=== PATIENT | female | born 1990 | race Caucasian/White ===

== ENCOUNTER 2021-01-01 10:27 | Emergency (ER) | payer OTHER, SELFPAY ==
--- NOTE | ~2021-01-01 | US_ITS ---
EXAMINATION: US RETROPERITONEAL COMPLETE (RENAL) CLINICAL INFORMATION: Right flank pain with question of stone disease. COMPARISON: Renal ultrasound 05/02/[address] abdomen/pelvis 10/06/2018 TECHNIQUE: Real-time imaging of the kidneys and bladder. FINDINGS: RIGHT KIDNEY: 12.3 x 4.7 x 6.0 cm (SAG x AP x TRV). The kidney is normal in size, contour, and echogenicity. Renal cortical thickness is normal. A lower pole 5 x 3 mm calculus is present slightly larger than in 2019. No other calculi or focal parenchymal lesions. No hydronephrosis. LEFT KIDNEY: 13.2 x 5.5 x 5.2 cm (SAG x AP x TRV). The kidney is normal in size, contour, and echogenicity. Renal cortical thickness is normal. Again seen are multiple nonobstructing calculi, the largest of which is in the midpole measuring 7 mm in size. No focal parenchymal lesions. No hydronephrosis. BLADDER: Well distended and normal. Bilateral ureteral jets are demonstrated. Prevoid bladder volume is 217 mL. Postvoid bladder volume is 3 mL. US/US retroperitoneal comp IMPRESSION: 1. Bilateral nonobstructing renal calculi. 2. The cause for the patient's right flank pain is not related to obstructive uropathy.
--- NOTE | 2021-01-01 10:35 | ED_ITS ---
HPI - Abdominal Pain General Chief Complaint: Abdominal Pain Stated Complaint: kidney pain Time Seen by Provider: 01/01/21 10:34 Source: patient Mode of arrival: ambulatory Limitations: no limitations History of Present Illness HPI narrative: 30 yo female with hx of kidney stones prior stent in the past, at this time she is 10 weeks (no OB complaints) here with R flank pain for 5 days worsening in nature c/o nausea as well, thinks it is a kidney stone MD elicited complaint: flank pain Pertinent past history: kidney stones Onset (ago): day(s) (5) Pain Consistency: colicky Location: R flank Severity: severe Quality: stabbing Radiation: R flank Migration to: no migration Exacerbating factors: nothing Relieving factors: nothing Associated symptoms: nausea Treatments prior to arrival: other (took tylenol at 4am) Related Data Previous Rx's Medication Instructions Recorded cephalexin 500 mg PO TID 10 Days #30 cap 01/01/21 ondansetron 4 mg PO Q8H PRN #20 tab 01/01/21 Allergies Allergy/AdvReac Type Severity Reaction Status Date / Time bee pollen [BEE STINGS] Allergy Unknown UNKNOWN Unverified 04/03/20 18:42 Review of Systems Review of Systems Constitutional : No Weight loss, No Fever, No Chills ENT/Mouth : No sore throat, No Rhinorrhea Eyes: No Swelling, No Redness Cardiovascular : No Chest Pain, No SOB, NoEdema Respiratory : No Cough, No Sputum, No Wheezing Gastrointestinal : Positive Nausea, no Vomiting, no Diarrhea, no abdominal Pain, No Hematochezia, No Melena, pos flank pain Genitourinary : No Dysuria, No Urinary Frequency, No Hematuria, No Urgency, no irregular bleeding Musculoskeletal : No joint pain, No Myalgias, No Joint Swelling Skin : No Skin Lesions, No rash Neuro : No Weakness, No Numbness, No Dizziness, No Headache Psych : No Anxiety/Panic, No Depression Heme/Lymph: No Bruising, No Lymphadenopathy Endocrine : No Polyuria, No Polydipsia All other systems reviewed and are negative. Physical Exam Vital Signs: Vital Signs: Last Vital Signs Temp 99.2 F 01/01/21 10:37 Pulse 91 01/01/21 10:37 Resp 18 01/01/21 10:37 BP 116/69 01/01/21 10:37 Pulse Ox 99 01/01/21 10:37 Body Mass Index 26.6 Appearance: Alert. Oriented X3. No acute distress. in pain Eyes: Pupils equal, round and reactive to light. ENT: Pharynx normal. Neck: Normal inspection. Neck supple. CVS: Normal heart rate and rhythm. Pulses normal. Respiratory: No respiratory distress. Breath sounds normal. Abdomen: Soft and nontender. Back: moderate R CVA ttp Skin: Skin warm and dry. Normal skin color. Normal skin turgor. Extremities: No lower extremity edema. No calf ttp Neuro: Oriented X 3. No motor deficit. No sensory deficit. Course Course Course Narrative: no leukocytosis, no vomiting, tolerating PO, no obstructing stone, will treat as possible pyelo though not clinically toxic, strict precautions to return MDM - Abdominal Pain MDM Narrative Medical decision making narrative: 30 yo female with hx of kidney stones prior stent in the past, at this time she is 10 weeks (no OB complaints) here with R flank pain for 5 days worsening in nature c/o nausea as well, thinks it is a kidney stone at this time will need labs, IVF, IV anti emetics, tylenol for pain, US to evaluate for stone, she has no OB complaints at this time Lab Data Result diagrams: 01/01/21 10:54 01/01/21 10:54 Labs: Lab Results 01/01/21 01/01/21 01/01/21 Range/Units 10:54 10:54 10:54 WBC 9.4 (4.8-10.8) X10*3/uL RBC 4.50 (4.20-5.50) X10*6/uL Hgb 13.1 (12.0-16.0) g/dl Hct 38.2 (37-47) % MCV 84.9 (80-98) fL MCH 29.1 (27.0-33.0) pg MCHC 34.3 (31.0-35.0) g/dl RDW 12.9 (11.0-16.0) % Plt Count 254 (160-400) X10*3/uL MPV 9.0 L (9.4-12.3) fL Immature Gran % (Auto) 0.3 (0.0-0.4) % Neut % (Auto) 73.9 H (45-73) % Lymph % (Auto) 15.5 L (20-40) % [place] % (Auto) 8.8 (2-11) % Eos % (Auto) 1.2 (0-4) % Baso % (Auto) 0.3 (0-2) % Lymph # (Auto) 1.5 (1.2-4.9) X10*3/uL [place] # (Auto) 0.8 (0.1-1.2) X10*3/uL Eos # (Auto) 0.1 (0.0-0.4) X10*3/uL Baso # (Auto) 0.0 (0.0-0.2) X10*3/uL Abs Immat Gran (auto) 0.03 (0.00-0.03) X10*3/uL Absolute Neuts (auto) 6.9 (2.0-8.3) X10*3/uL Absolute Nucleated RBC 0.000 (0.0-0.012) X10*3/uL Nucleated RBC % (auto) 0.0 (0.0-0.2) /100WBC Sodium 138 (135-145) mmol/L Potassium 3.6 (3.3-5.1) mmol/L Chloride 107 (96-108) mmol/L Carbon Dioxide 22 (22-29) mmol/L Anion Gap 13 (12-20) BUN 10 (9-16) mg/dL Creatinine 0.66 (0.5-1.4) mg/dL Estim Creat Clear Calc 128.9 Estimated GFR > 60 Random Glucose 75 (60-115) mg/dL Calcium 9.1 (8.4-10.2) mg/dL Magnesium 1.9 (1.6-2.6) mg/dL Total Bilirubin 0.4 (0.0-1.0) mg/dL Direct Bilirubin < 0.2 (0.0-0.5) mg/dL AST 19 (5-31) U/L ALT 12 (0-31) U/L Alkaline Phosphatase 47 (39-117) U/L Total Protein 6.7 (6.5-8.0) g/dL Albumin 3.9 (3.5-5.0) g/dL Lipase 38 (8-78) U/L Urine Color YELLOW Urine Appearance HAZY Urine pH 6.5 (5.0-8.0) Ur Specific [place] 1.025 (1.005-1.025) Urine Protein NEG (NEG-TRACE) MG/DL Urine Glucose (UA) NEG (NEG) MG/DL Urine Ketones NEG (NEG) MG/DL Urine Blood NEG (NEG) Urine Nitrite NEG (NEG) Ur Leukocyte Esterase 1+ H (NEG) Urine RBC 0 (0) /HPF Urine WBC 15-29 H (0-4) /HPF Ur Squamous Epith Cells 2+ /LPF Urine Bacteria 1+ /LPF Urine Mucus 3+ /LPF Discharge Plan Discharge Clinical Impression: Calculus of kidney, UTI (urinary tract infection) Patient Disposition: Home, Self-Care Instructions: Kidney Infection (ED) Additional Instructions: return to ED for any worsening symptoms or concerns IF YOU HAVE WORSE PAIN, FEVERS, UNABLE TO TAKE MEDICATIONS PLEASE RETURN THIS IS SERIOUS AND COULD AFFECT YOU AND THE BABY Prescriptions: New cephalexin 500 mg capsule 500 mg PO TID 10 Days Qty: 30 RF: 0 ondansetron 4 mg tablet,disintegrating 4 mg PO Q8H PRN (Reason: nausea and vomiting) Qty: 20 RF: 0 Stand Alone Forms: Work/School Release [facility] Past Medical History Attestation statement: The following information was validated with the patient. Medical History Kidney stone Surgical History S/P ureteral stent placement Social History Social History (Updated 01/01/21 @ 10:57 by Shoshana Schneider DO) Alcohol intake: never Patient Tobacco Use Status: Never used Tobacco Use of substances other than those prescribed or required for medical reasons: No Advance Directives: Yes Advance Directives Information Provided: Yes Advance Directives on File: No Patient : Yes
[2021-01-01 10:37] VITALS: BP 116/69; PULSE 91; RESP 18; TEMP 37.3; O2SAT 99; BMI 26.6
[2021-01-01 10:58] LABS: MANUAL DIFF FLAG NO
[2021-01-01 10:59] LABS: Glucose Urine UA NEG (NEG); Leukocyte Esterase Urine 1+ (NEG); Nitrite Urine NEG (NEG); PH 6.5 (5.0-8.0); Specific Gravity - Urine 1.025 (1.005-1.025); UACC Culture Trigger YES; Urine Blood NEG (NEG); Urine Ketones NEG (NEG); Urine Protein NEG (NEG-TRACE)
[2021-01-01] MEDS: Metoclopramide HCl 10 MG/2 ML VIAL 5 MG IVPUSH (10:59)
[2021-01-01] MEDS: 0.9 % Sodium Chloride 1,000 ML 999 ML IVCONT (10:59)
[2021-01-01] MEDS: Acetaminophen 325 MG TABLET 650 MG PO (10:59)
[2021-01-01] MEDS: diphenhydrAMINE HCL 50 MG/ML VIAL 25 MG IVPUSH (10:59)
[2021-01-01 11:00] LABS: Appearance Urine HAZY; Basophils Percent Auto 0.3 % (0-2); Color Urine YELLOW; Eosinophils Absolute Auto 0.1 X10*3/uL (0.0-0.4); Eosinophils Percent Auto 1.2 % (0-4); Hematocrit 38.2 % (37-47); Hemoglobin 13.1 g/dl (12.0-16.0); Imm Gran Abs Auto 0.03 X10*3/uL (0.00-0.03); Imm Gran Pct Auto 0.3 % (0.0-0.4); Lymphocytes Absolute Auto 1.5 X10*3/uL (1.2-4.9); Lymphocytes Percent Auto 15.5 % (20-40); Mean Corpuscular HGB Conc 34.3 g/dl (31.0-35.0); Mean Corpuscular Hemoglobin 29.1 pg (27.0-33.0); Mean Corpuscular Volume 84.9 fL (80-98); Monocytes Absolute Auto 0.8 X10*3/uL (0.1-1.2); Monocytes Percent Auto 8.8 % (2-11); Neutrophils Absolute Auto 6.9 X10*3/uL (2.0-8.3); Neutrophils Percent Auto 73.9 % (45-73); Platelet Count 254 X10*3/uL (160-400); Red Cell Distribution Width 12.9 % (11.0-16.0); White Blood Count 9.4 X10*3/uL (4.8-10.8)
[2021-01-01 11:08] LABS: Bacteria Urine 1+ /LPF; Mucus Urine 3+ /LPF; RBC Urine 0 /HPF (0); Squamous Epithelial Cell Urine 2+ /LPF
[2021-01-01 11:21] LABS: Alanine Aminotransferase 12 U/L (0-31); Albumin Level 3.9 g/dL (3.5-5.0); Alkaline Phosphatase 47 U/L (39-117); Anion Gap 13 (12-20); Aspartate Amino Transferase 19 U/L (5-31); Bilirubin Direct < 0.2 mg/dL (0.0-0.5); Bilirubin Total 0.4 mg/dL (0.0-1.0); Blood Urea Nitrogen 10 mg/dL (9-16); Calcium 9.1 mg/dL (8.4-10.2); Carbon Dioxide 22 mmol/L (22-29); Chloride 107 mmol/L (96-108); Creatinine Clr Calc Pharmacy 128.9; Estimated Glomerular Filt Rate > 60; Glucose Random 75 mg/dL (60-115); Lipase 38 U/L (8-78); Magnesium 1.9 mg/dL (1.6-2.6); Potassium 3.6 mmol/L (3.3-5.1); Sodium 138 mmol/L (135-145); Total Protein 6.7 g/dL (6.5-8.0)
[2021-01-01] MEDS: cefTRIAXone sodium 1 GM in 0.9 % Sodium Chloride 50 ML IV (13:30)
[2021-01-01 13:47] LABS: Lactic Acid 1.3 mmol/L (0.5-2.0)
== END 2021-01-01 14:13 | disposition home or self-care (01) ==
PROVIDERS: Emergency Provider Emergency Medicine; PCP Nurse Practitioner Family
DX: O23.41 Unspecified infection of urinary tract in pregnancy, first trimester (principal); O99.891 Other specified diseases and conditions complicating pregnancy; N20.0 Calculus of kidney; Z3A.10 10 weeks gestation of pregnancy; Z87.442 Personal history of urinary calculi
CPT/HCPCS: 36415; 76770; 80048; 80076; 81001; 81003; 83605; 83690; 83735; 85025; 87040; 87086; 96361; 96365; 96375; 99284; J0696; J1200; J2765

== ENCOUNTER 2022-04-29 12:16 | Outpatient (REF) | payer BC, SELFPAY ==
[2022-04-29 15:02] LABS: MANUAL DIFF FLAG NO
[2022-04-29 15:04] LABS: Appearance Urine Clear; Color Urine Yellow; Glucose Urine UA Negative (Negative); Leukocyte Esterase Urine Moderate (2+) (Negative); Nitrite Urine Negative (Negative); PH 8.5 (5.0-9.0); Specific Gravity - Urine 1.015 (1.005-1.025); UMIC TRIGGER UACC YES; Urine Blood Trace (Negative); Urine Ketones Negative (Negative); Urine Protein Negative (Neg-Trace)
[2022-04-29 15:10] LABS: Basophils Absolute Auto 0.1 X10*3/uL (0.0-0.2); Eosinophils Absolute Auto 0.1 X10*3/uL (0.0-0.4); Eosinophils Percent Auto 2.2 % (0-4); Hematocrit 38.5 % (37.0-47.0); Hemoglobin 13.1 g/dl (12.0-16.0); Imm Gran Abs Auto 0.01 X10*3/uL (0.00-0.03); Imm Gran Pct Auto 0.2 % (0.0-0.4); Lymphocytes Absolute Auto 1.5 X10*3/uL (1.2-4.9); Lymphocytes Percent Auto 25.4 % (20-40); Mean Corpuscular Hemoglobin 28.7 pg (27.0-33.0); Mean Corpuscular Volume 84.2 fL (80.0-98.0); Monocytes Absolute Auto 0.7 X10*3/uL (0.1-1.2); Monocytes Percent Auto 11.4 % (2-11); Neutrophils Absolute Auto 3.6 x10*3/uL (2.0-8.3); Neutrophils Percent Auto 59.8 % (45-73); Platelet Count 280 X10*3/uL (160-400); Red Blood Count 4.57 X10*6/uL (4.20-5.50); Red Cell Distribution Width 12.7 % (11.0-16.0)
[2022-04-29 15:21] LABS: Bacteria Urine Trace (None Seen); Hyaline Casts Urine 0-2 /LPF (0-2); WBC Urine 0-5 /HPF (0-5)
[2022-04-29 15:30] LABS: Alanine Aminotransferase 12 U/L (0-31); Albumin Level 4.2 g/dL (3.5-5.0); Alkaline Phosphatase 51 U/L (39-117); Anion Gap 13 (12-20); Aspartate Amino Transferase 19 U/L (5-31); Bilirubin Total < 0.2 mg/dL (0.0-1.0); Blood Urea Nitrogen 11 mg/dL (9-16); Carbon Dioxide 24 mmol/L (22-29); Chloride 106 mmol/L (96-108); Estimated Glomerular Filt Rate > 60; Glucose Random 89 mg/dL (60-115); Potassium 3.9 mmol/L (3.3-5.1); Sodium 139 mmol/L (135-145); Total Protein 6.9 g/dL (6.5-8.0)
== END 2022-04-29 12:17 | disposition home or self-care (01) ==
LOC: HO.HMGCLDS 12:16
PROVIDERS: PCP Nurse Practitioner Family; Visit Provider Physician Assistant
DX: R10.9 Unspecified abdominal pain (principal)
CPT/HCPCS: 36415; 80053; 81001; 81003; 85025

== ENCOUNTER 2023-02-24 08:14 | Outpatient (AMB) | payer BC, SELFPAY ==
--- NOTE | 2023-02-24 08:29 | MHC.OFFWIV ---
Intake Vital Signs 02/24/23 08:32 Height 5 ft 4 in Weight 150 lb 4 oz BMI 25.8 BP 108/72 Blood Pressure Location Lt brachial Position Sitting Pulse 92 Pulse Source Pulse Oximeter Temp 98.5 F Temp Source Oral Pulse Oximetry (%) 99 Oxygen Delivery Method Room Air Intake Visit Reasons: EP, Right eat pain Intake Note: Pt is here today for Rt ear pain started this morning, Pt states its swollen and painful to touch. Patient Tobacco Use Status: Never used Tobacco Allergies bee pollen [BEE STINGS] Allergy (Unknown, Verified 02/24/23 08:32) UNKNOWN Do you need a note to return to daycare/school/sports/work: No HPI HPI Comments History of Present Illness Details The patient complains of right ear pain since yesterday with some tenderness in front of her ear. [facility] Medical History Kidney stone Surgical History S/P ureteral stent placement Social History (Reviewed 09/08/22 @ 11:17 by Kade Grayson [facility] Household Members: Significant Other and Children Housing: House Alcohol intake: never Patient Tobacco Use Status: Never used Tobacco Review of Systems Const Denies headache(s) Eyes Denies change in vision, Denies dry eyes, Denies floaters, Denies irritation, Reports itchy eyes and Denies eye pain ENT Reports no additional complaints and Denies headache(s) Card Reports no additional complaints Musc Denies numbness Skin/Breast Denies skin pain, Denies skin swelling and Denies unusual bruising Neuro Denies headache(s), Denies focal weakness and Denies numbness Aller/Immun Reports itchy eyes Physical Exam Vital Signs: Last Vital Signs Temp 98.5 F 02/24/23 08:32 Pulse 92 02/24/23 08:32 BP 108/72 02/24/23 08:32 Pulse Ox 99 02/24/23 08:32 Oxygen Delivery Method Room Air 02/24/23 08:32 BMI result Body Mass Index 25.8 Const General: healthy appearing and no acute distress Orientation/consciousness: patient oriented x3 HEENT Other: Right ear: Pre-auricular lymph node enlargement tenderness to palpation Ear canal erythematous and tender with otoscope palpation TM unremarkable Eyes Eyelids: Yes eyelids normal EOM: EOMs intact bilaterally Neuro General: patient oriented x3 Assessment & Plan Assessment & Plan (1) Otitis externa: Code(s): H60.90 - Unspecified otitis externa, unspecified ear Plan Otitis externa will treat with drops Medications: New [id number]-HB 3.5-10,000-1 mg/mL-unit/mL-% 4 drps otic (ear) right Q6H 7 days 10 mL 0RF Coding Level of Care Code Est Pt Level 3 (12279) Diagnoses Otitis externa H60.90
[2023-02-24 08:32] VITALS: BP 108/72; PULSE 92; TEMP 36.9; O2SAT 99; BMI 25.8
== END 2023-02-24 09:22 | disposition home or self-care (01) ==
PROVIDERS: PCP Nurse Practitioner Family; Visit Provider Emergency Medicine
DX: H60.91 Unspecified otitis externa, right ear (principal)
CPT/HCPCS: 99213

== ENCOUNTER 2023-02-26 10:55 | Outpatient (AMB) | payer BC, SELFPAY ==
--- NOTE | 2023-02-26 11:43 | AM.OFFWIN_ITS ---
Intake Vital Signs 02/26/23 11:49 Height 5 ft 4 in BP 130/70 Blood Pressure Location Lt brachial Position Sitting Pulse 91 Pulse Source Pulse Oximeter Temp 98.2 F Temp Source Temporal Artery Scan Pulse Oximetry (%) 100 Oxygen Delivery Method Room Air Intake Visit Reasons: EST/ ear inf Intake Note: pt is here for possible ear infection Patient Tobacco Use Status: Never used Tobacco Allergies bee pollen [BEE STINGS] Allergy (Unknown, Verified 02/26/23 11:49) UNKNOWN HPI EST/ ear inf HPI Details Patient is a 32-year-old female who comes to the walk-in clinic complaining of persistent right ear pain. She was diagnosed with otitis externa a few days ago, and had started on antibiotic ear drops, however she states that her symptoms have persisted, and the only improvement as that the ear is not as externally swollen. No recent swimming history, and no significant here to disease history reported. No rapid COVID testing. No discharge or bleeding reported, and she denies fever or chills, hearing difficulty, dizziness or weakness, nausea vomiting or diarrhea, cough or sore throat, postnasal drip, loss of sense of taste or smell, or other significant associated symptoms. [facility] Medical History Kidney stone Surgical History S/P ureteral stent placement Social History Household Members: Significant Other and Children Housing: House Alcohol intake: never Patient Tobacco Use Status: Never used Tobacco Review of Systems Const All systems reviewed & are unremarkable except as noted in HPI and below Physical Exam Vital Signs: Last Vital Signs Temp 98.2 F 02/26/23 11:49 Pulse 91 02/26/23 11:49 BP 130/70 02/26/23 11:49 Pulse Ox 100 02/26/23 11:49 Oxygen Delivery Method Room Air 02/26/23 11:49 Const General: cooperative, alert, awake, Physically active and well groomed; No anxious, diaphoretic, intoxicated appearing, poor hygiene or tired appearing Nutritional Appearance: average body habitus Limitations: no limitations HEENT Head: Yes normal to inspection, Yes normocephalic and Yes atraumatic Ears: hearing grossly normal bilaterally, external ears normal, TM normal on the left, Abnormal EAC present (9 o'clock position has beefy appearance) erythema, edema and EAC tenderness; no excessive cerumen, no foreign body and no otic discharge, no external ear abnormalities and TM abnormal bulging, dull, erythematous and with fluid behind the TM Face and sinus: Yes normal facial exam and Yes face symmetric Neck Neck: Yes normal visual inspection, Yes no lymphadenopathy, Yes trachea midline, Yes supple and No anterior neck swelling Resp Effort & Inspection: normal respiratory effort Cardio Rate: regular rate Psych Appearance: grossly normal Mental Status: mental status grossly normal Speech and movement: Normal speech and movement present Affect: normal affect Attitude: cooperative Thought process: Normal thought process present Insight: Good insight present (Psych) Judgement: Good judgement present (Psych) Assessment & Plan Assessment & Plan (1) Otitis externa: Code(s): H60.90 - Unspecified otitis externa, unspecified ear Qualifiers: Laterality: right Plan: Patient has developed a moderate case of otitis externa that was nonresponsive to polymyxin drops. Due to severity of swelling and not entirely sure if there is a perforation on the membrane, which looks infected also, will write her for ciprofloxacin and dexamethasone suspension. Will also write for oral regimen to cover otitis media. She will follow up if symptoms continue to persist or worsen. Medications: New ciprofloxacin-dexamethasone 0.3-0.1 % 4 drps otic (ears) BID 7 days 7.5 mL 0RF amoxicillin-pot clavulanate 875-125 mg 1 tab PO BID 20 tabs 0RF Coding Level of Care Code Est Pt Level 4 (12851) Diagnoses Otitis externa H60.90 Laterality: right
[2023-02-26 11:49] VITALS: BP 130/70; PULSE 91; TEMP 36.8; O2SAT 100
== END 2023-02-26 12:48 | disposition home or self-care (01) ==
PROVIDERS: PCP Nurse Practitioner Family; Visit Provider Physician Assistant Medical
DX: H60.91 Unspecified otitis externa, right ear (principal)
CPT/HCPCS: 99214

== ENCOUNTER 2023-04-21 10:27 | Outpatient (AMB) | payer BC, SELFPAY ==
[2023-04-21 12:41] VITALS: BP 118/72; PULSE 76; TEMP 36.2; O2SAT 98; BMI 24.5
--- NOTE | 2023-04-21 12:41 | MHC.OFFWIV ---
Intake Vital Signs 04/21/23 12:41 Height 5 ft 4 in Weight 143 lb BMI 24.5 BP 118/72 Blood Pressure Location Rt brachial Position Sitting Pulse 76 Pulse Source Pulse Oximeter Temp 97.2 F Temp Source Temporal Artery Scan Pulse Oximetry (%) 98 Intake Visit Reasons: EP, Right side of rib pain Intake Note: pt is here for c/o right side pain, denies urination issues Patient Tobacco Use Status: Never used Tobacco Allergies bee pollen [BEE STINGS] Allergy (Unknown, Verified 04/21/23 12:44) UNKNOWN Do you need a note to return to daycare/school/sports/work: Yes HPI EP, Right side of rib pain HPI Details 32-year-old female patient presents today with about a 1 year history of right-sided flank pain. She has a history kidney stones, some of which required surgical intervention. Has seen [facility] urology previously for this. She reports this started about a year ago, and has persisted. She reports a dull aching on the left side which is worse with activity and somewhat better with rest. She denies any urinary symptoms, fever, chills. Denies any breathing difficulties, shortness of breath, or increase in pain with inspiration. She has an appt with PCP Kade Chatman in Aug 2023 however this has been increasingly bothersome for her and she would like to start looking into this. [facility] Medical History Kidney stone Surgical History S/P ureteral stent placement Social History Household Members: Significant Other and Children Housing: House Alcohol intake: never Patient Tobacco Use Status: Never used Tobacco Review of Systems Const All systems reviewed & are unremarkable except as noted in HPI and below Physical Exam Vital Signs: Last Vital Signs Temp 97.2 F 04/21/23 12:41 Pulse 76 04/21/23 12:41 BP 118/72 04/21/23 12:41 Pulse Ox 98 04/21/23 12:41 BMI result Body Mass Index 24.5 Const General: cooperative and no acute distress Nutritional Appearance: average body habitus and well nourished Limitations: no limitations HEENT Head: Yes normal to inspection Neck Neck: Yes no lymphadenopathy Resp Effort & Inspection: normal respiratory effort and able to speak in complete sentences Auscultation: clear to auscultation bilaterally Cardio Jugular venous distension: no JVD Palpation: normal PMI Rate: regular rate Rhythm: regular rhythm GI Palpation (GI): Soft to palpation and No hepatosplenomegaly present General: Yes bladder normal to palpation and Yes CVA tenderness (mild right) Bimanual exam- vagina & uterus: bladder normal to palpation Back/Spine/Pelvis Back: CVA tenderness (mild right) Skin General skin exam: no rashes or lesions noted Extrem General: Yes capillary refill normal and Yes no clubbing, cyanosis or edema Psych Appearance: grossly normal Mental Status: mental status grossly normal Speech and movement: Normal speech and movement present Results AMB Urinalysis, Automated UA Leukoctes 70 [place]/uL Last Edit by Kayden Cárdenas CCM on 04/21/23 13:37 UA Nitrite Negative Last Edit by Kayden Cárdenas CCM on 04/21/23 13:37 UA Urobilinogen 0.2 mg/dL Last Edit by Kayden Cárdenas CCM on 04/21/23 13:37 UA Protein 0 mg/dL Last Edit by Kayden Cárdenas CCM on 04/21/23 13:37 UA pH 7.5 Last Edit by Kayden Cárdenas CCM on 04/21/23 13:37 UA Blood 10 [place]/uL Last Edit by Kayden Cárdenas CCM on 04/21/23 13:37 UA Specific [place] 1.010 Last Edit by Kayden Cárdenas CCM on 04/21/23 13:37 UA Ketone Negative Last Edit by Kayden Cárdenas CCM on 04/21/23 13:37 UA Bilirubin 0 mg/dL Last Edit by Kayden Cárdenas CCM on 04/21/23 13:37 UA Glucose 0 mg/dL Last Edit by Kayden Cárdenas [facility] on 04/21/23 13:37 Assessment & Plan Assessment & Plan (1) Chronic right flank pain: Code(s): R10.9 - Unspecified abdominal pain; G89.29 - Other chronic pain Plan: Patient has had ongoing dull right flank pain for about a year. History of kidney stones requiring stent placement/surgical intervention. No acute or severe pain at this time, however she does have some mild right CVA tenderness. Urine dip showed blood. Given this and her history, this could represent a renal pathology. I would like to discuss with her PCP imaging for this, and I will send a message to discuss possible eval with CT. I discussed this with patient and she agrees to plan. If pain worsens/intensifies, or if any new urinary symptoms develop, she should go to the emergency department. Orders: Orders AMB Urinalysis Automated Today Z13.9 - Encounter for screening, unspecified Coding Level of Care Code Est Pt Level 3 (30847) Diagnoses Chronic right flank pain R10.9; G89.29
== END 2023-04-21 13:39 | disposition home or self-care (01) ==
PROVIDERS: PCP Nurse Practitioner Family; Visit Provider Nurse Practitioner Family
DX: R10.9 Unspecified abdominal pain (principal)
CPT/HCPCS: 81003; 99213

== ENCOUNTER 2023-05-25 09:11 | Outpatient (REF) | payer BC, SELFPAY ==
--- NOTE | ~2023-05-25 | CT_ITS ---
EXAMINATION: CT ABDOMEN AND PELVIS WITHOUT CONTRAST CLINICAL INFORMATION: Personal history of urinary tract calculi COMPARISON: Renal ultrasound 01/01/2021, CT abdomen pelvis 12/07/2019 TECHNIQUE: Multidetector volumetric imaging was performed from the superior aspect of the liver through the pubic symphysis. Sagittal and coronal reformatted images were obtained on the technologist's workstation. This CT examination was performed using dose optimization techniques as appropriate, variously including the following: *Automated exposure control *Adjustment of mA and/or kV according to patient size (this includes techniques or standardized protocols for targeted exams where dose is matched to indication/reason for exam; i.e. extremities or head) *Use of iterative reconstruction technique DLP: 383 mGy-cm FINDINGS: LUNG BASES: The visualized lung bases are unremarkable. LIVER, GALLBLADDER, AND BILIARY TREE: The liver is normal in size, shape, and attenuation. No focal hepatic lesion or biliary ductal dilatation is present. The gallbladder is unremarkable with no evidence of radiopaque gallstones, gallbladder wall thickening, or obvious pericholecystic inflammatory changes. PANCREAS: Unremarkable. SPLEEN: Unremarkable. ADRENAL GLANDS: Unremarkable. KIDNEYS AND URETERS: The kidneys are normal in size, shape, and attenuation. 6 small nonobstructing calculi are present in the left kidney the largest measuring 4 mm in size at the lower pole. This measures about 575 Hounsfield units which includes partial volume averaging and is 8.5 cm from the posterior axillary line. 2 nonobstructing renal calculi are present in the right kidney the largest measuring 3 mm. Compared to the prior study, stone burden is decreased. At the time of the prior study patient had an obstructing right ureteral stone and hydronephrosis which has resolved. At this time, no hydronephrosis, hydroureter, or ureteral calculi seen. No perinephric stranding. No renal masses. BLADDER: Unremarkable. GASTROINTESTINAL TRACT: The small and large bowel are unremarkable aside from a questionable area of mild inflammatory change at the level of the mid ascending colon laterally which also was present on the 10/06/2018 study. The appendix is unremarkable. ABDOMINAL WALL: No significant hernia is appreciated. LYMPH NODES: Normal. VASCULAR: Unremarkable. PELVIC VISCERA: The retroverted uterus and adnexa are unremarkable. OSSEOUS STRUCTURES: Unremarkable. CT/CT abdomen pelvis wo IV con IMPRESSION: Bilateral nonobstructing renal calculi. Fleischner guidelines were followed.
== END 2023-05-25 09:12 | disposition home or self-care (01) ==
LOC: HO.CT 09:11
PROVIDERS: PCP Nurse Practitioner Family; Visit Provider Nurse Practitioner Family
DX: R10.9 Unspecified abdominal pain (principal); R31.29 Other microscopic hematuria; Z87.442 Personal history of urinary calculi
CPT/HCPCS: 74176

== ENCOUNTER 2023-12-22 08:14 | Outpatient (AMB) | payer BC, SELFPAY ==
--- NOTE | 2023-12-22 08:16 | MHC.PC.OV ---
Vital Signs 12/22/23 08:19 Height 5 ft 4 in Weight 143 lb BMI 24.5 BP 108/66 Blood Pressure Location Rt brachial Position Sitting Pulse 68 Pulse Source Pulse Oximeter Pulse Oximetry (%) 97 Oxygen Delivery Method Room Air Intake Visit Reasons: PE W/ LABS Intake Note: Patient here for physical exam. Allergies bee pollen [BEE STINGS] Allergy (Unknown, Verified 12/22/23 09:04) UNKNOWN Medication List - Last Reconciled 12/22/23 by YIFAN Leonard No Known Home Meds Tobacco use date assessed: 12/22/23 Dental Screening Dental Screen Date: 12/22/23 Did you have a dental visit in the last 12 months?: Yes Did you have a dental problem in the last 6 months where you did not have access to dental care?: No Was dental information given to patient?: Patient has dentist HPI PE W/ LABS HPI Details Pt is here for a PE. Will order labs. 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 Pt reports that her mom unexpectedly in April. She is struggling with this and is interested in seeing a therapist. Will have team speak with pt. Pt is tearful today. Denies any SI and HI. PFSH Medical History Kidney stone Surgical History S/P ureteral stent placement Social History Household Members: Significant Other and Children Housing: House Alcohol intake: never Patient Tobacco Use Status: Never used Tobacco Questionnaire PHQ-9 Over the last 2 weeks, how often have you been bothered by any of the following problems? 1. Little interest or pleasure in doing things: not at all 2. Feeling down, depressed, or hopeless: several days 3. Trouble falling or staying asleep, or sleeping too much: not at all 4. Feeling tired or having little energy: not at all 5. Poor appetite or overeating: not at all 6. Feeling bad about yourself - or that you are a failure or have let yourself or your family down: not at all 7. Trouble concentrating on things, such as reading the newspaper or watching television: not at all 8. Moving or speaking so slowly that other people could have noticed. Or the opposite - being so fidgety or restless that you have been moving around a lot more than usual: not at all 9. Thoughts that you would be better off or of hurting yourself in some way: not at all Total score: 1 Depression Screening Interpretation: Negative Depression Screening Done: Yes 32385 - PHQ-9 Billing: Yes Source: Developed by Drs. Reji Colon, Sunshine Alvarenga, Moy Obrien and colleagues, with an educational nya from [employer] Thrive Questionnaire Date Thrive assessed: 12/22/23 I am a: Patient What is your living situation today?: I have a steady place to live Within the past 12 months, did the food you bought not last and you didn't have the money to get more?: Never true Within the past 12 months, did you worry whether your food would run out before you got money to buy more?: Never true Do you have trouble paying for medicines?: No Do you have trouble getting transportation to medical appointments?: No Do you have trouble paying your heating and electricity bill?: No Do you have trouble taking care of your child, family member or friend?: No Do you have trouble with day-to-day activities such as bathing, preparing meals, shopping, managing finances, etc.?: No Are you currently unemployed and looking for a job?: No Are you interested in more education?: No Currently or been in a relationship where the following occur: I choose not to answer this question THRIVE Score: 0 AUDIT C Alcohol Use Questionnaire (AUDIT-C) 1. How often do you have a drink containing alcohol?: Never 3. How often do you have six or more drinks on one occasion?: Never Total Score: 0 Score Reviewed/Action Taken: No BABATUNDE-7 AMB Questionnaire BABATUNDE-7 Date BABATUNDE - 7 assessed: 12/22/23 Feeling nervous, anxious, or on edge: 0 = Not at all Not being able to stop or control worryin = Several days Worrying too much about different things: 1 = Several days Trouble relaxin = Not at all Being so restless that it is hard to sit still: 0 = Not at all Becoming easily annoyed or irritable: 0 = Not at all Feeling afraid as if something awful might happen: 0 = Not at all Total BABATUNDE-7 score (0-4 normal; 5-9 mild; 10-14 moderate; 15-21 severe): 2 Source: Developed by Drs. Reji Colon, Sunshine Alvarenga, Moy Obrien and colleagues, with an educational nya from [employer] BABATUNDE-7 Assessment Billing BABATUNDE-7 Assessment Tool: BABATUNDE-7 Assessment 33847 Review of Systems Const Denies chills and Denies fever(s) Eyes Denies blurry vision ENT Denies vertigo, Denies dizziness and Denies sore throat Card Denies chest pain at rest, Denies chest pain with activity, Denies diaphoresis, Denies dyspnea and Denies dyspnea on exertion Resp Denies cough, Denies dyspnea, Denies dyspnea on exertion and Denies wheezing GI Denies abdominal pain, Denies melena, Denies hematochezia, Denies constipation, Denies diarrhea and Denies loose stools Denies hematuria Musc Denies numbness and Denies tingling Skin/Breast Denies lesions Neuro Denies vertigo, Denies dizziness, Denies numbness and Denies tingling Psych Denies anxiety, Denies depression, Denies homicidal ideation, Denies suicidal ideation and Denies other (substance abuse) Aller/Immun Denies wheezing Physical exam (Primary Care) Vital Signs: Last Vital Signs Pulse 68 12/22/23 08:19 BP 108/66 12/22/23 08:19 Pulse Ox 97 12/22/23 08:19 Oxygen Delivery Method Room Air 12/22/23 08:19 BMI result Body Mass Index 24.5 Tobacco/Smoking Status: Tobacco use Status Tobacco use date assessed 12/22/23 12/22/23 08:24 Patient Tobacco Use Status Never used Tobacco 12/22/23 08:16 Depression Screening Interpretation: Negative Thrive Assessment: Date of Thrive Assessment Date Thrive assessed 09/08/22 12/22/23 08:16 Currently or been in a relationship where the following occur: I choose not to answer this question Const General: cooperative Nutritional Appearance: well nourished Orientation/consciousness: patient oriented x3 HENMT Head: Yes normal to inspection, Yes normocephalic and Yes atraumatic Ears: TM's normal bilaterally Eyes General: appearance normal, both eyes and all related structures Alignment and Position: alignment normal and position normal Neck Neck: Yes normal visual inspection and Yes no lymphadenopathy Thyroid: Thyroid normal Resp Effort & Inspection: normal respiratory effort Auscultation: clear to auscultation bilaterally Cardio Rate: regular rate Rhythm: regular rhythm Heart sounds: S1 normal heart sound present, S2 normal heart sound present and no murmurs GI Palpation (GI): Soft to palpation and nontender Auscultation: normal bowel sounds Skin Rashes: no rashes Neuro General: patient oriented x3, moves all extremities, no focal motor deficits and deep tendon reflexes 2+ bilaterally Romberg Test: Negative Psych Other: tearful Appearance: grossly normal Mental Status: mental status grossly normal Speech and movement: Normal speech and movement present Affect: normal affect Attitude: cooperative Thought process: Normal thought process present Thought content: Normal thought content present Insight: Good insight present (Psych) Judgement: Good judgement present (Psych) Assessment and Plan Assessment & Plan (1) Physical exam: Code(s): Z00.00 - Encounter for general adult medical examination without abnormal findings Plan: Labs ordered (2) Grief: Code(s): F43.21 - Adjustment disorder with depressed mood Plan: Danyelle to speak with pt about getting a grief counselor Plan The patient agreed to the use of a certified medical transcriptionist for this encounter. Scribed for YIFAN Knutson by Galina Kelley certified medical transcriptionist, on 12/22/2023 at 08:30 EST. Orders: Orders Complete Blood Count Auto Diff Today Z00.00 - Encounter for general adult medical examination without abnormal findings Comprehensive [place]. Panel Fast Today Z00.00 - Encounter for general adult medical examination without abnormal findings TSH reflex Free T4 Today Z00.00 - Encounter for general adult medical examination without abnormal findings UA CC w/rflx Micro + Cult Today Z00.00 - Encounter for general adult medical examination without abnormal findings Lipid Panel Today Z00.00 - Encounter for general adult medical examination without abnormal findings Coding Level of Care Code Est Pt Prev Care 18-39y(92839) Diagnoses Physical exam Z00.00 Grief F43.21 Additional Codes BABATUNDE-7 Assessment Billing - BABATUNDE-7 Assessment Tool: BABATUNDE-7 Assessment 01332 ([id number])
[2023-12-22 08:19] VITALS: BP 108/66; PULSE 68; O2SAT 97; BMI 24.5
== END 2023-12-22 10:09 | disposition home or self-care (01) ==
PROVIDERS: PCP Nurse Practitioner Family; Visit Provider Nurse Practitioner Family
DX: Z00.00 Encounter for general adult medical examination without abnormal findings (principal); F43.21 Adjustment disorder with depressed mood
CPT/HCPCS: 99395

== ENCOUNTER 2025-01-23 07:59 | Outpatient (AMB) | payer BC, SELFPAY ==
[2025-01-23 08:02] VITALS: BP 120/80; PULSE 88; O2SAT 98; BMI 23.7
--- NOTE | 2025-01-23 08:02 | A.OFFPC_ITS ---
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 Accompanied by: Self / Same As Patient Allergies bee pollen (BEE STINGS) Allergy (Unknown, Verified 01/23/25 08:19) UNKNOWN Medication List - Last Reconciled 01/23/25 by TOPHER Leonard No Known Home Meds Tobacco use date assessed: 01/23/25 Dental Screening Dental Screen Date: 01/23/25 Did you have a dental visit in the last 12 months?: Yes Did you have a dental problem in the last 6 months where you did not have access to dental care?: No Was dental information given to patient?: Patient has dentist HPI PE HPI Details History of Present Illness The patient is a 34-year-old female presenting with kidney stones and preventative care needs. She has a history of kidney stones and reports right flank discomfort. The discomfort typically begins in the morning and subsides after fluid intake. Additionally, she experiences left lower quadrant abdominal discomfort after eating, accompanied by gas. She recently started a probiotic regimen approximately two weeks ago to address this issue. She denies any hematuria, diarrhea, or constipation. Health Maintenance - Pap smear referral for routine screeni ng Social History Review of Systems - Respiratory: Denies dyspnea - Genitourinary: Denies hematuria - Gastrointestinal: Reports left lower q uadrant abdominal discomfort after eating with gas; denies diarrhea and constipation - Psychiatric: Denies suicidal ideation or homicidal ideation Physical Exam General: Cooperative, healthy appearing, comfortable, no acute distress and well developed Orientation: Patient oriented x3 Limitations: No limitations Head: Normal to inspection Ears: Hearing grossly normal bilaterally Nose: Normal external nose present Face and sinus: Normal facial exam Eyes: Appearance normal, both eyes and all related structures Neck: Normal visual inspection and Yes full ROM Respiratory: Normal respiratory effort and able to speak in complete sentences. Clear to auscultation bilaterally Cardiovascular: Regular rate and rhythm. Normal S1 and S2 GI: Normal to inspection. Soft to palpation and nontender. Reports right flank discomfort and left lower quadrant abdominal discomfort after eating with some gas. Skin: Small acne lesions noted at the back Neuro: Patient oriented x3 Extremities: Normal to inspection Results Plan A bilateral renal ultrasound will be conducted to assess the kidneys and the placement of kidney stones. The patient is advised to continue her probiotic regimen for another month to address abdominal discomfort. If symptoms persist, a proton pump inhibitor may be considered. A referral for a pap smear is made for routine preventative care. Discussion Notes I discussed with the patient the plan to perform a bilateral renal ultrasound to evaluate her kidney stones and any potential placement issues. We also talked about her continuing the probiotic regimen for another month and considering a proton pump inhibitor if her abdominal discomfort persists. Additionally, I informed her about the referral for a pap smear as part of her routine preventative care. Patient Instructions - Continue taking the probiotic for anot her month. - Schedule and attend the renal ultrasou nd appointment. - Follow up with a pap smear as referred . - Contact the clinic if abdominal discom fort persists. [facility] Medical History Kidney stone Surgical History S/P ureteral stent placement Social History Household Members: Significant Other and Children Housing: House Alcohol intake: never Patient Tobacco Use Status: Never used Tobacco Cognitive needs: No Hearing needs: No Vision needs: Yes Questionnaire PHQ-9 Over the last 2 weeks, how often have you been bothered by any of the following problems? 1. Little interest or pleasure in doing things: not at all 2. Feeling down, depressed, or hopeless: not at all 3. Trouble falling or staying asleep, or sleeping too much: not at all 4. Feeling tired or having little energy: not at all 5. Poor appetite or overeating: not at all 6. Feeling bad about yourself - or that you are a failure or have let yourself or your family down: not at all 7. Trouble concentrating on things, such as reading the newspaper or watching television: not at all 8. Moving or speaking so slowly that other people could have noticed. Or the opposite - being so fidgety or restless that you have been moving around a lot more than usual: not at all 9. Thoughts that you would be better off or of hurting yourself in some way: not at all Total score: 0 Depression Screening Interpretation: Negative Depression Screening Done: Yes 87170 - PHQ-9 Billing: Yes Source: Developed by Drs. Reji Colon, Sunshine Alvarenga, Moy Obrien and colleagues, with an educational nya from [employer]. Thrive Questionnaire Date Thrive assessed: 01/23/25 I am a: Patient What is your living situation today?: I have a steady place to live Within the past 12 months, did the food you bought not last and you didn't have the money to get more?: Never true Within the past 12 months, did you worry whether your food would run out before you got money to buy more?: Never true Do you have trouble paying for medicines?: No Do you have trouble getting transportation to medical appointments?: No Do you have trouble paying your heating and electricity bill?: No Do you have trouble taking care of your child, family member or friend?: No Do you have trouble with day-to-day activities such as bathing, preparing meals, shopping, managing finances, etc.?: No Are you currently unemployed and looking for a job?: No Are you interested in more education?: No Please select the resources that you would like help with: None Currently or been in a relationship where the following occur: No concerns reported THRIVE Score: 0 AUDIT C Alcohol Use Questionnaire (AUDIT-C) 1. How often do you have a drink containing alcohol?: Never 3. How often do you have six or more drinks on one occasion?: Never Total Score: 0 Score Reviewed/Action Taken: Yes BABATUNDE-7 AMB Questionnaire BABATUNDE-7 Date BABATUNDE - 7 assessed: 01/23/25 Feeling nervous, anxious, or on edge: 1 = Several days Not being able to stop or control worryin = Not at all Worrying too much about different things: 1 = Several days Trouble relaxin = Not at all Being so restless that it is hard to sit still: 0 = Not at all Becoming easily annoyed or irritable: 0 = Not at all Feeling afraid as if something awful might happen: 0 = Not at all Total BABATUNDE-7 score (0-4 normal; 5-9 mild; 10-14 moderate; 15-21 severe): 2 Source: Developed by Jean Olivaset B.W. Lyle, Moy Obrien and colleagues, with an educational nya from [employer]. BABATUNDE-7 Assessment Billing BABATUNDE-7 Assessment Tool: BABATUNDE-7 Assessment 04311 Physical exam (Primary Care) Vital Signs: Last Vital Signs Pulse 88 01/23/25 08:02 BP 120/80 01/23/25 08:02 Pulse Ox 98 01/23/25 08:02 BMI result Body Mass Index 23.7 Tobacco/Smoking Status: Tobacco use Status Tobacco use date assessed 01/23/25 01/23/25 08:03 Patient Tobacco Use Status Never used Tobacco 01/23/25 08:03 PHQ-9: PHQ-9 Score PHQ-9: Total score 0 01/23/25 08:03 Depression Screening Interpretation: Negative Thrive Assessment: Date of Thrive Assessment Date Thrive assessed 01/23/25 01/23/25 08:03 Currently or been in a relationship where the following occur: No concerns reported Coding Level of Care Code Est Pt Prev Care 18-39y(17821) Diagnoses Screening for cervical cancer Z12.4 Encounter for routine adult physical exam with abnormal findings Z00.01 Right flank pain R10.9 Hx of renal calculi Z87.442 Flank pain R10.9 Additional Codes BABATUNDE-7 Assessment Billing - BABATUNDE-7 Assessment Tool: BABATUNDE-7 Assessment 24686 ([id number]) PHQ-9 - 20407 - PHQ-9 Billing: Yes ([id number]) Assessment & Plan Assessment & Plan (1) Screening for cervical cancer: Code(s): Z12.4 - Encounter for screening for malignant neoplasm of cervix Category: Medical (2) Encounter for routine adult physical exam with abnormal findings: Code(s): Z00.01 - Encounter for general adult medical examination with abnormal findings Category: Medical (3) Right flank pain: Code(s): R10.9 - Unspecified abdominal pain Category: Medical Plan: . (4) Hx of renal calculi: Code(s): Z87.442 - Personal history of urinary calculi Category: Medical (5) Flank pain: Code(s): R10.9 - Unspecified abdominal pain Category: Medical Plan . Orders: Orders Comprehensive [place]. Panel Fast Today Z00.00 - Encounter for general adult medical examination without abnormal findings UA CC w/rflx Micro + Cult Today Z00.00 - Encounter for general adult medical examination without abnormal findings Complete Blood Count Auto Diff Today Z00.00 - Encounter for general adult medical examination without abnormal findings TSH reflex Free T4 Today Z00.00 - Encounter for general adult medical examination without abnormal findings Lipid Panel Today Z00.00 - Encounter for general adult medical examination without abnormal findings US renal BI Today R10.9 - Unspecified abdominal pain, Z87.442 - Personal history of urinary calculi 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
--- OUTSIDE RECORDS SUMMARY | 2025-01-23 08:02 | XMS_ITS | Data Portability ---
Author Organization [facility] Address [address] [place] [address] Care Team Providers Care Human Resources Clerk Name Role Phone HAYDEN AVILA Primary Care Provider Assessment No assessment recorded. Plan of Treatment Reminders Order Date Submit Date Provider Last Modified By Organization Details Last Modified Time Details Appointments None recorded. Lab rapid strep group A, throat 2022 023 [email or web address] suz[facility], [address] [place] [address], [phone], 16:32:35 Referral None recorded. Procedures None recorded. Surgeries None recorded. Imaging None recorded. Medication Orders amoxicillin 875 mg tablet 2022 023 [facility][id number], [address] [place], [address], 16:32:31 Patient TargetsNo targets recorded. Patient Instructions Encounter Date Encounter Id Patient Instructions Last Modified By Organization Details Last Modified Time 01/06/2023 [id number] sore throat: car e instructions [email or web address] Not available 01/06/2023 16:32:28 Reason for Referral None Reported. Results Created Date Observation Date Name Description Value Unit Range Abnormal Flag Note LastModifiedBy Organization Detail LastModifiedTime 01/07/2001/06/2023 rapid strep group A, throa t Unknown Analyte Normal = Negati ve Not Available [facility] [address] [place] [address], [phone], 01/06/2023 16:15:20 01/07/20 23 01/06/2023 rapid strep group A, throa t Unknown Analyte negati ve Not Available [id number] [address] [facility] [facility], [place], [phone], 01/06/2023 16:15:20 Result Notes None recorded. Problems No Known Problems Medical Equipment None Reported. Allergies No known drug allergies Medications Name Sig Start Date Stop Date Status Note LastModified by Organization Details LastModified Time amoxicillin 875 mg tablet Take 1 tablet every 12 hours by oral route for 10 days. 023 active Not Available Not Available Not Avai lable Vitals Date Recorded Body weight Body mass index (BMI) Body height Respiratory rate Oxygen saturation Oxygen saturation in Arterial blood by Pulse oximetry Heart rate Body temperature Systolic And Diastolic Provider Name and Address Organization Details Last Updated DateTime 76884.9 3 g 24 kg/m2 162.56 cm 20 /min 99 % 99 % 99 /min 98.3 [degF] 121/71 mm[Hg] Daphne Soto PA - [facility] 16:15:50 Social History Question Answer Notes LastModified by [employer] Details LastModified Time Tobacco Smoking Status Never Smoker Daphne cook PA - [facility] 01/06/2023 16:15:04 Have You Had Direct Contact, Or Contact During Intimacy, With Monkeypox Rash, Scabs, Or Body Fluids From A Person With Monkeypox? No Information not available 01/06/2023 Have You Recently Traveled Abroad? No Information not available 01/06/2023 Sex: Unknown Functional Status Question Answer Note LastModified by [employer] Details LastModified Time Do you use any illicit or recreational drugs? No Information not available 01/06/2023 Do you or have you ever used any other forms of tobacco or nicotine? No Information not available 01/06/2023 What is your level of alcohol consumption? None Information not available 01/06/2023 Mental Status None recorded. Family History Relationship Description Onset Age of this Age Resolved Age Notes LastModified by Organization Details LastModified Time Father No current problems or disability Not available 06/22 /2023 16:14:59 Mother No current problems or disability Not available 01/06 16:14:59 Medical History No medical history recorded. Gynecological History Statement/Question Response Date of LMP 01/03/2023 Is there any chance of ? No LMP Approximate Obstetrics History GPAL:G 0 P 0 0 0 0 Past Encounters Encounter ID Performer Location Encounter Start Date Encounter Closed Date Diagnosis/Indication Diagnosis SNOMED-CT Code Diagnosis ICD10 Code Diagnosis Note [id number] [facility] [address] 08/12/2018 11:21:52 08/12/2018 11:48:48 [id number] [place] [address] [address] 01/06/2023 15:04:25 01/06/2023 16:34:31 Acute pharyngitis 349360529 J02.9 Presumed Strep based on clinical exam and history I am going to prescribe you and antibiotic to cover this infection. Please be sure to complete the full course of this antibiotic to prevent antibiotic resistance . Antibiotic s will typically take 4-5 days to start to work with symptom improvemen t. The following are my other recommenda tions to help with symptoms and is important for this diagnosis: 1. Do not share any food or drinks - strep is passed through direct saliva exchange (NOT IN THE AIR) 2. Change your toothbrush in 3-4 days so that you don't re-infect yourself after you complete the antibiotic . 3. Take Ibuprofen or Tylenol if you do not have any allergies to these medication s. If you take a blood thinner you should not take NSAIDS like Ibuprofen. These medication will help with the inflammati on in your respirator y tract which should help the cough. (I would alternate between Tylenol 650 mg and your Ibuprofen 600 mg every 4 hours) 4. Do not take any Cold Medication s that have a Decongesta nt in it - this will dry out your throat and make the sore throat worse. 5. Drinking Hot Tea with honey can help coat and soothe your throat. 6. You would be considered contagious for the next 24-48 hours, or until fever resolves. I would be seen again if you develop any of the following symptoms. ER is the best place. 1. Fever > 101.0 2. Stiff neck - where you can't turn your neck 3. Trouble swallowing your saliva - drooling 4. Swelling of a lymph node in your throat that is painful to touch 5. Difficulty breathing 6. Severe Headache Thank you for using [facility] today, please feel free to contact our office if you have any questions or concerns. Health Concerns Section Related Observation LastModified by Organization Detai ls LastModified Time None Recorded Concern Status LastModified by Organization Details LastModified Time None Recorded Advance Directives Directive None Recorded Payers Insurance Date Sequence Insurance Name Policy Number Policy Saunders Covered Member ID Saunders Member ID Guarantor Name 01/06/2023 1 [facility] [id number] Kelsie Schulz 01/06/2023 1 [facility]: HMO [facility] (HMO) [id number] Wilian Kellee Aries [id number] Kelsie Schulz Notes Date Note Type Note Provider Name and Address Organization Details Recorded Time 3 text/html Sore throatReported bypatient.Source of patient informationInformation obtained from patient; Patient arrived at Urgent Care ambulatory Location:throat Severity:moderate Quality:sharp; hurts to swallow Onset/Timin days Associated Symptoms:no cough; no sputum production; no shortness of breath; no wheezing; no sinus pain; no vomiting; no nausea; No hoarseness;sore throat;fever Context:sick contact Modifying Factors:exposed to Strep household * Malcolm Pleitez MD [facility] [place] [place], [address], PA - [facility] 01/08/2023 13:08:21 OBGyn Episode No OBEpisode recorded.
== END 2025-01-23 08:37 | disposition home or self-care (01) ==
LOC: HO.HMCC 08:00
PROVIDERS: PCP Nurse Practitioner Family; Visit Provider Nurse Practitioner Family
DX: Z12.4 Encounter for screening for malignant neoplasm of cervix (principal); Z00.01 Encounter for general adult medical examination with abnormal findings; R10.9 Unspecified abdominal pain; Z87.442 Personal history of urinary calculi

== ENCOUNTER → 2025-01-23 07:59 | Outpatient (BNVA) | payer BC, SELFPAY | PROVIDERS: PCP Nurse Practitioner Family; Visit Provider Nurse Practitioner Family | DX: Z00.01 Encounter for general adult medical examination with abnormal findings (principal); R10.9 Unspecified abdominal pain; Z87.442 Personal history of urinary calculi; Z13.31 Encounter for screening for depression; Z13.30 Encounter for screening examination for mental health and behavioral disorders, unspecified | CPT/HCPCS: 96127 ==

== ENCOUNTER 2025-02-26 08:25 | Outpatient (REF) | payer BC, SELFPAY ==
[2025-02-26 10:04] LABS: MANUAL DIFF FLAG NO
[2025-02-26 10:12] LABS: Appearance Urine Clear; Glucose Urine UA Negative (Negative); PH 5.5 (5.0-9.0); Specific Gravity - Urine 1.020 (1.005-1.025); UMIC TRIGGER UACC YES
[2025-02-26 10:19] LABS: UACC Culture Trigger YES
[2025-02-26 10:21] LABS: Hematocrit 37.3 % (37.0-47.0); Hemoglobin 12.5 g/dl (12.0-16.0); Imm Gran Abs Auto 0.03 X10*3/uL (0.00-0.03); Imm Gran Pct Auto 0.6 % (0.0-0.4); Lymphocytes Absolute Auto 1.3 X10*3/uL (1.2-4.9); Mean Corpuscular HGB Conc 33.5 g/dl (31.0-35.0); Mean Corpuscular Hemoglobin 28.1 pg (27.0-33.0); Mean Corpuscular Volume 83.8 fL (80.0-98.0); NRBC Abs Auto 0.000 X10*3/uL (0.0-0.012); NRBC Pct Auto 0.0 /100WBC (0.0-0.2); Platelet Count 254 X10*3/uL (160-400); Red Blood Count 4.45 X10*6/uL (4.20-5.50); White Blood Count 4.7 X10*3/uL (4.8-10.8)
[2025-02-26 10:46] LABS: Alanine Aminotransferase 15 U/L (0-31); Albumin Level 4.3 g/dL (3.5-5.0); Alkaline Phosphatase 45 U/L (39-117); Anion Gap 10 (12-20); Aspartate Amino Transferase 26 U/L (5-31); Blood Urea Nitrogen 18 mg/dL (9-16); Calcium 8.9 mg/dL (8.4-10.2); Carbon Dioxide 26 mmol/L (22-29); Chloride 108 mmol/L (96-108); Cholesterol 153 mg/dL (<200); Estimated Glomerular Filt Rate > 60; HDL Cholesterol 53 mg/dL (>40); Potassium 3.6 mmol/L (3.3-5.1); Sodium 140 mmol/L (135-145); Total Protein 6.9 g/dL (6.5-8.0); Triglycerides 54 mg/dL (<150)
== END 2025-02-26 08:26 | disposition home or self-care (01) ==
LOC: HO.HMGCLDS 08:25
PROVIDERS: PCP Nurse Practitioner Family; Visit Provider Nurse Practitioner Family
DX: Z00.00 Encounter for general adult medical examination without abnormal findings (principal); Z13.6 Encounter for screening for cardiovascular disorders
CPT/HCPCS: 36415; 80053; 80061; 81001; 84443; 85025; 87086

== ENCOUNTER 2025-02-28 11:23 | Outpatient (REF) | payer BC, SELFPAY ==
--- NOTE | ~2025-02-28 | US_ITS ---
CLINICAL HISTORY: R10.9 - Unspecified abdominal pain flank pain US Renal Comparison: None provided Findings: Right kidney normal size and echotexture, 10.3 cm length. Non obstructing calculus in the lower pole measuring 2 mm. Left kidney normal size and echotexture, 10.1 cm length. Multiple non obstructing calculi measuring up to 3 mm. No collecting system dilatation of either kidney. Normal color Doppler. IMPRESSION: Bilateral non obstructing renal calculi. This document has been electronically signed by: Dilan Delgado MD on 02/28/2025 18:57:09
== END 2025-02-28 11:24 | disposition home or self-care (01) ==
LOC: HO.HMGCX 11:23
PROVIDERS: PCP Nurse Practitioner Family; Visit Provider Nurse Practitioner Family
DX: R10.9 Unspecified abdominal pain (principal); Z87.442 Personal history of urinary calculi
CPT/HCPCS: 76775

== ENCOUNTER → 2025-02-28 11:31 | Outpatient (BNV) | payer BC, SELFPAY | PROVIDERS: PCP Nurse Practitioner Family; Visit Provider Radiology Diagnostic Radiology | DX: N20.0 Calculus of kidney (principal) | CPT/HCPCS: 76775 ==